=== PATIENT | female | born 1990 | race Caucasian/White ===

== ENCOUNTER 2017-08-27 20:45 | Emergency (ER) | payer SELFPAY ==
[2017-08-27] MEDS ORDERED: LORAZEPAM 1 MG TABLET ONE (21:39)
[2017-08-27] MEDS ORDERED: LORAZEPAM 1 MG TABLET PO ONE (22:00)
[2017-08-27] MEDS ORDERED: POTASSIUM CHLORIDE 20 MEQ TAB.PRT.SR PO ONE ×2 (22:00→22:10)
[2017-08-27] MEDS ORDERED: IV NS 0.9% 1,000 ML BAG IV ONE (22:00)
== END 2017-08-27 23:01 | disposition home or self-care (01) ==
DX: E87.6 Hypokalemia (principal); F41.9 Anxiety disorder, unspecified; F12.10 Cannabis abuse, uncomplicated; E86.0 Dehydration; N28.9 Disorder of kidney and ureter, unspecified; Z60.2 Problems related to living alone